=== PATIENT | female | born 2000 | race Caucasian/White ===

== ENCOUNTER 2023-07-16 06:09 | Emergency (ER) | payer BC, MEDICAID ==
[~2023-07-16] VITALS: Ht 162.6 cm; Wt 57.0 kg
[2023-07-16 06:13] VITALS: O2SAT 98
[2023-07-16 06:20] VITALS: TEMP 98.9
[2023-07-16] MEDS ORDERED: ACETAMINOPHEN 325MG TABLET PO STA (06:55)
[2023-07-16] MEDS ORDERED: LORAZEPAM 2MG/ML CPJ IM STA (07:14)
[2023-07-16] MEDS ORDERED: HALOPERIDOL LACTATE 5MG/ML VIAL IM ONE (07:15)
[2023-07-16] MEDS ORDERED: ONDANSETRON HCL 4MG/2ML INJ IV ONE (07:15)
[2023-07-16 07:27] LABS: HEMATOCRIT. 49.3 % (36.0-48.0); HEMOGLOBIN. 16.4 g/dL (12.0-16.0); MEAN CORPUSCULAR HEMOGLOBIN 30.7 pg (28.0-32.0); MEAN CORPUSCULAR HGB CONC 33.3 g/dL (31.0-37.0); MEAN CORPUSCULAR VOLUME 92.1 fL (81.0-99.0); MEAN PLATELET VOLUME 8.2 fl (7.4-10.4); PLATELET 311 x1000/uL (130-400); RED BLOOD CELL COUNT 5.35 mill/uL (4.2-5.4); RED CELL DISTRIBUTION WIDTH 13.7 % (11.6-14.6); WHITE BLOOD COUNT 18.8 x1000/uL (4.5-11.0)
[2023-07-16 07:29] LABS: DIFFERENTIAL COMMENT 1
[2023-07-16 08:08] LABS: PROTHROMBIN TIME 10.9 sec (9.6-11.0)
[2023-07-16 08:14] LABS: HCG SCREEN NEGATIVE
[2023-07-16 08:31] LABS: PLATELET ESTIMATE NORMAL
[2023-07-16 08:34] LABS: CHLORIDE 99 mEq/L (98-107); INDEX HEMOLYSI 2 (1-3); INDEX ICTERIC 1 (1-4); INDEX LIPEMIC 1 (1-3); SODIUM 137 mEq/L (136-145)
[2023-07-16 08:41] LABS: ALANINE AMINOTRANSFERASE 17 IU/L (13-61); ALBUMIN 4.8 g/dL (3.4-5.0); ASPARTATE AMINOTRANSFERASE 15 IU/L (15-37); BILIRUBIN TOTAL 0.5 mg/dL (0.1-1.0); CALCIUM 10.9 mg/dL (8.5-10.1); CARBON DIOXIDE 27 mEq/L (21-32); CREATININE 0.9 mg/dL (0.6-1.3); GLUCOSE 128 mg/dL (70-105); PROTEIN TOTAL 9.2 g/dL (6.0-8.3); UREA NITROGEN BLOOD 14 mg/dL (7-21)
[2023-07-16 11:30] VITALS: BP 123/79; PULSE 94; RESP 13
[2023-07-16] MEDS ORDERED: TOPUD PO (11:40)
== END 2023-07-16 17:30 | disposition home or self-care (01) ==
LOC: ER 06:09 → CANBEDREQ 12:35 → ER 17:30
DX: N83.202 Unspecified ovarian cyst, left side (principal); R11.2 Nausea with vomiting, unspecified
CPT/HCPCS: 80053; 84703; 83605; 83690; 85025; 85610; 87040; 36415; 74176; 76830; 76856; 96372; 96374; 99285; J1630; J2060; J2405; Z7610 ×3